=== PATIENT | female | born 1995 | race Caucasian/White ===

== ENCOUNTER 2020-09-29 02:06 | Emergency (ER) | payer OTHER ==
[~2020-09-29] VITALS: Ht 160 cm; Wt 59.0 kg
[2020-09-29] MEDS ORDERED: PHENAZOPYRIDINE 100 MG TABLET. PO ONE (03:00)
--- NOTE | 2020-09-29 03:03 | PHYS DOC ---
Adult General Chief Complaint Chief Complaint: URINARY FREQUENCY HPI HPI Patient is a 24-year-old female who presents with a chief complaint of dysuria, urinary frequency and some hematuria that started yesterday. States she never had anything like this before. Denies any recent traumas, travels, fevers, chest pain, shortness of breath, abdominal pain, nausea, vomiting, blood in the stool. Denies any vaginal bleeding discharge, pain, history of STIs. States that the dysuria is uncomfortable, 5 out of 10, sharp/burning in nature. Review of Systems Review of Systems Review of systems otherwise unremarkable except noted in HPI Physical Exam Physical Exam Constitutional: Well developed, well nourished, no acute distress, non-toxic appearance. [] HENT: Normocephalic, atraumatic, bilateral external ears normal, oropharynx m oist, no oral exudates, nose normal. [] Eyes:conjunctiva normal, no discharge. [] Cardiovascular:Heart rate regular rhythm, no murmur [] Lungs & Thorax: Bilateral breath sounds clear to auscultation [] Abdomen: soft, no tenderness, no masses, no pulsatile masses. [] Skin: Warm, dry, no erythema, no rash. [] Back: no CVA tenderness. [] Extremities: No tenderness, ROM intact, no edema. [] Neurologic: Alert and oriented X 3, no focal deficits noted. [] Psychologic: Affect normal, judgement normal, mood normal. [] EKG EKG [] Radiology/Procedures Radiology/Procedures [] Heart Score C/O Chest Pain: No Risk Factors: Risk Factors: DM, Current or recent (<one month) smoker, HTN, HLP, family history of CAD, obesity. Risk Scores: Risk Factors: DM, Current or recent (<one month) smoker, HTN, HLP, family hi story of CAD, obesity. Course & Med Decision Making Course & Med Decision Making Patient is a 24-year-old female who presents with a chief complaint of dysuria, urinary frequency Vital signs not concerning. Physical exam noted above. Urine appeared red on sample. Urinalysis notable for a few bacteria, blood. Given some per imaging. Given first dose of Rocephin in ED for cystitis/UTI. Discussed pain management for home. Advised on appropriate hydration. Advised to call primary care physician first thing in the morning and set up a follow-up visit early next week for repeat urinalysis and discussion for need for further treatment and evaluation. Gave strict return precautions to the ED. Patient grateful, verbalized unde rstanding and agreed with plan of discharge. Ejon Disclaimer Danny Disclaimer This electronic medical record was generated, in whole or in part, using a voice recognition dictation system. Departure Departure: Impression: Primary Impression: Dysuria Additional Impressions: Hematuria Acute hemorrhagic cystitis Disposition: HOME / SELF CARE / HOMELESS Condition: GOOD Referrals: PCP,NEEMA (PCP) TIMMY VALDES Patient Instructions: Hematuria, Adult, Urinary Tract Infection Additional Instructions: Thank you for coming into the emergency department tonight and allowing us to take care of you. Please read all of the attached information very carefully to go back over what we discussed. You were given your first dose of antibiotics in the emergency department. Please fill your prescription and take all your antibiotics as prescribed. You can begin a Tylenol and Benadryl regimen at home for pain control and use your prescription pain medication for breakthrough pain. Please call your primary care physician first thing this morning to update on ED visit and set up a follow-up appointment for early next week for reevaluation and repeat urinalysis and discuss need for further evaluation. Please come back to the ED with new or concerning symptoms as discussed. Scripts Hydrocodone Bit/Acetaminophen (HYDROCODONE-APAP 5-325 ) 1 Each Tablet 1 TAB PO TID PRN for cystitis for 2 Days, #6 TAB 0 Refills Prov: IVAN GALAVIZ MD 09/29/20 Phenazopyridine Hcl (PYRIDIUM) 100 Mg Tablet 1 TAB PO TID for urinary discomfort for 2 Days, #6 TAB 0 Refills Prov: IVAN GALAVIZ MD 09/29/20 Problem Qualifiers IVAN GALAVIZ MD Sep 29, 2020 03:03
[2020-09-29 03:05] LABS: CLARITY,URINE HAZY; COLOR,URINE RED; RBC,URINE OCC /HPF (0-2)
[2020-09-29 03:06] LABS: BACTERIA,URINE FEW /HPF (0-FEW); SQUAMOUS EPITHELIAL CELL,UR FEW /LPF; WBC,URINE >40 /HPF (0-4)
[2020-09-29 03:19] LABS: BASO # 0.1 x10^3/uL (0.0-0.2); BASO % 1 % (0-3); EOS # 0.3 x10^3/uL (0.0-0.7); EOS % 2 % (0-3); HEMATOCRIT 37.7 % (36.0-47.0); HEMOGLOBIN 12.6 g/dL (12.0-15.5); LYMPH # 2.5 x10^3/uL (1.0-4.8); LYMPH % 16 % (24-48); MEAN CORPUSCULAR HEMOGLOBIN 30 pg (25-35); MEAN CORPUSCULAR HGB CONC 34 g/dL (31-37); MEAN CORPUSCULAR VOLUME 90 fL (79-100); MONO # 0.9 x10^3/uL (0.0-1.1); MONO % 5 % (0-9); NEUT # 12.1 x10^3uL (1.8-7.7); NEUT % 77 % (31-73); PLATELET COUNT 243 x10^3/uL (140-400); RED BLOOD COUNT 4.21 x10^6/uL (3.50-5.40); RED CELL DISTRIBUTION WIDTH 12.9 % (11.5-14.5); WHITE BLOOD COUNT 15.8 x10^3/uL (4.0-11.0)
[2020-09-29 03:24] LABS: CREATININE 0.8 mg/dL (0.6-1.0); GFR 87.4; POTASSIUM 3.5 mmol/L (3.5-5.1)
[2020-09-29 03:28] LABS: CALCIUM 8.4 mg/dL (8.5-10.1)
[2020-09-29] MEDS ORDERED: cefTRIAXone SODIUM 1 GM VIAL ONE (03:30)
[2020-09-29] MEDS ORDERED: HYDROcodone/APAP 5/325MG 1 TAB TABLET PO ONE (03:30)
[2020-09-29] MEDS ORDERED: IV NORMAL SALINE 50ML 50 ML ONE (03:30)
[2020-09-29 03:41] LABS: % BANDS 2 % (0-9); % EOS 1 % (0-5); % LYMPHS 18 % (24-48); % MONOS 9 % (0-10); % SEGS 70 % (35-66); PLT ESTIMATE ADEQUATE (ADEQUATE)
[2020-09-29] MEDS ORDERED: HYDR-2155 PO (04:04)
[2020-09-29] MEDS ORDERED: PHEN100T82 PO (04:04)
[2020-09-29 04:30] VITALS: BP 102/63
[2020-09-29] MEDS ORDERED: CEPH500C PO (04:52)
== END 2020-09-29 04:30 | disposition home or self-care (01) ==
LOC: EDBD 02:06 → ER 02:06
DX: N30.01 Acute cystitis with hematuria (principal); R30.0 Dysuria
CPT/HCPCS: 36415; 80048; 81001; 85007; 85025; 87086; 96365; 99284; J0696